=== PATIENT | male | born 1970 | race Two or more races ===

== ENCOUNTER 2021-07-20 09:14 | Emergency (ER) | payer OTHER ==
[~2021-07-20] VITALS: Ht 180.3 cm; Wt 104.3 kg
[2021-07-20 11:00] VITALS: BP 130/74
[2021-07-20] MEDS ORDERED: IBUP800T27 PO (11:59)
[2021-07-20] MEDS ORDERED: ACETAMINOPHEN/CODEINE#3 (300/30mg) TAB PO ONE (12:00)
[2021-07-20] MEDS ORDERED: ONDANSETRON ODT 4 MG TAB PO ONE (12:00)
== END 2021-07-20 12:14 | disposition home or self-care (01) ==
LOC: ER 09:14 → EDSEX 09:14 → ER 12:14
DX: S46.911A Strain of unspecified muscle, fascia and tendon at shoulder and upper arm level, right arm, initial encounter (principal); W18.00XA Striking against unspecified object with subsequent fall, initial encounter; Y93.01 Activity, walking, marching and hiking; Y92.89 Other specified places as the place of occurrence of the external cause; Y99.8 Other external cause status
CPT/HCPCS: 73030